=== PATIENT | male | born 1975 | race Caucasian/White ===

== ENCOUNTER → 2023-10-10 | Outpatient (CLI) | payer SELFPAY ==
--- NOTE | 2023-10-10 07:21 | MRI_ITS ---
HISTORY: NUMBNESS/TINGLING LEFT ARM. TECHNIQUE: Multiplanar and multisequence MR images of the cervical spine were obtained without contrast. 272 images. COMPARISON: None. FINDINGS: VERTEBRAE: Vertebral body heights maintained. Mild degenerative endplate changes without significant bone marrow signal abnormality. VERTEBRAL ALIGNMENT: No anterior or posterior subluxation. SPINAL CORD: Cervical cord signal and morphology within normal limits. SOFT TISSUES: No prevertebral fluid collection. INTERVERTEBRAL DISCS: C2-3, C3-4, C4-5: No significant posterior disc protrusion, central canal stenosis, or foraminal narrowing. C5-6: Mild left paracentral disc protrusion resulting in mild central canal stenosis, left traversing nerve root impingement, and mild left foraminal narrowing. C6-7, C7-T1: No significant posterior disc protrusion, central canal stenosis, or foraminal narrowing MRI/Spine Cervical (Routine) IMPRESSION: Mild left paracentral disc protrusion of C5-6 resulting in mild spinal canal stenosis, left nerve root impingement, and mild left foraminal narrowing. Electronically Signed: Mary Cervantes MD at 15:37 EST ,
== END | disposition home or self-care (01) ==
PROVIDERS: PCP Family Medicine; Visit Provider Family Medicine
DX: M54.2 Cervicalgia (principal); R20.0 Anesthesia of skin; R20.2 Paresthesia of skin
CPT/HCPCS: 72141